=== PATIENT | male | born 1980 | race Caucasian/White ===

== ENCOUNTER 2017-08-09 23:36 | Emergency (ER) | payer BC, MEDICARE ==
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
[2017-08-10] MEDS ORDERED: LIDOCAINE URO-JET JELLY 2% 5 ML KIT ENDOTRACHE ONE (01:08)
[2017-08-10 01:27] VITALS: RESP 18
--- NOTE | 2017-08-10 02:06 | XR ---
EXAMINATION TYPE: XR soft tissue neck DATE OF EXAM: 08/10/2017 COMPARISON: NONE HISTORY: Tracheostomy placement TECHNIQUE: 2 views FINDINGS: There is tracheostomy tube that appears in good position. Prevertebral soft tissues are not enlarged. There are multiple surgical clips over the soft tissues of the anterior neck and mandible. There is narrowing of the posterior oropharyngeal airway. IMPRESSION: Tracheostomy tube appears in good position. Extensive surgery in the oropharynx and phary nx.
[2017-08-10 02:25] VITALS: BP 118/72; PULSE 88; TEMP 97.9
== END 2017-08-10 02:25 | disposition home or self-care (01) ==
LOC: EC 23:36
DX: J95.03 Malfunction of tracheostomy stoma (principal); F17.200 Nicotine dependence, unspecified, uncomplicated; Z79.891 Long term (current) use of opiate analgesic
CPT/HCPCS: 31502; 70360; 99283